=== PATIENT | male | born 1940 | race African-American/Black ===

== ENCOUNTER 2018-04-07 03:33 | Inpatient (IN) | payer MEDICARE, MEDICAID ==
[~2018-04-07] VITALS: Ht 167.6 cm; Wt 107.1 kg
[~2018-04-07 03:33] MED LIST: ALPR1TAB7 PO; BACL10TA PO; DULO60CA PO; ESCI20TA PO; FURO40TA4 PO; GABA400C11 PO; GLIM2TAB33 PO; INSLANTI; OXYB10TA13 PO; OXYC-650 PO; ROSU1TAB5 PO; TRAZ100T2 PO; [UNRECOGNIZED DRUG - CODE] PO
[2018-04-07 04:01] LABS: Basophils # (auto) 0.1 uL; Basophils % (auto) 1.6 % (0.0-2.0); Eosinophils # (auto) 0.2 uL; Hematocrit 42.8 % (41.0-53.0); Hemoglobin 14.2 g/dL (13.5-17.5); Lymphocytes # (auto) 1.9 uL; Lymphocytes % (auto) 41.1 % (10.0-50.0); Mean Corpuscular Hemoglobin 28.7 pg (28.0-32.0); Mean Corpuscular Hgb Conc. 33.2 g/dL (32.0-36.0); Mean Corpuscular Volume 86.5 fL (80.0-100.0); Monocytes # (auto) 0.4 uL; Monocytes % (auto) 8.6 % (0.0-12.0); Neutrophils # (auto) 2.1 uL; Neutrophils % (auto) 44.7 % (37.0-80.0); Nucleated Red Blood Cells % 0.1 %; Platelet Count (auto) 192 10^3/uL (140-450); Red Blood Cells 4.94 10^6/uL (4.5-5.90); Red Cell Distribution Width 15.3 % (11.8-14.3); White Blood Cell 4.7 10^3/uL (4.4-10.8)
[2018-04-07 04:24] LABS: INR 0.97 (0.9-1.15); Partial Thromboplastin Time 26.1 sec (23.78-33.04); Prothrombin Time 10.4 sec (9.27-12.13)
[2018-04-07 04:29] LABS: Alanine Aminotransferase 18 U/L (16-61); Albumin 2.8 g/dL (3.4-5.0); Alkaline Phosphatase 92 U/L (45-117); Anion Gap 8 (5-15); Aspartate Aminotransferase 12 U/L (15-37); BUN/Creatinine Ratio 16.8; Bilirubin, Total 0.4 mg/dL (0.2-1.0); Blood Urea Nitrogen 16 mg/dL (7-18); Carbon Dioxide 24 mmol/L (21-32); Chloride 108 mmol/L (98-107); GFR African American 99 mL/min; GFR Non-African American 82 mL/min; Glucose 108 mg/dL (74-106); Magnesium 2.3 mg/dL (1.6-2.6); Potassium 3.6 mmol/L (3.5-5.1); Sodium 140 mmol/L (136-145); Total Protein 6.4 g/dL (6.4-8.2)
[2018-04-07 07:19] LABS: Urine Bacteria NONE SEEN /hpf (None Seen); Urine Blood Negative /uL (Negative); Urine Mucus FEW (None Seen); Urine WBC 4 /hpf (0 - 3)
[2018-04-07] MEDS ORDERED: ENOXAPARIN SOD 100 MG/1 ML SYRINGE SC ONE (07:45)
[2018-04-07] MEDS ORDERED: IOHEXOL 350 MG/ML 100ML IJ ONE (07:54)
[2018-04-07] MEDS ORDERED: DEXTROSE (50%) 50ML SYRG IV PRN (09:00)
[2018-04-07] MEDS ORDERED: INSULIN LANTUS (GLARGINE) 1 /0.01ml (100units/ml) SC ONE (09:00)
[2018-04-07] MEDS ORDERED: LORazepam 0.5 MG TAB PO PRN (09:15)
[2018-04-07] MEDS ORDERED: MORPHINE SULFATE 8mg/ml INJ SDV IV PRN ×2 (09:15)
[2018-04-07] MEDS ORDERED: ONDANSETRON HCL 4 MG/2 ML VIAL IV PRN ×2 (09:15→10:45)
[2018-04-07] MEDS ORDERED: ACETAMINOPHEN 325 MG TAB PO PRN (09:15)
[2018-04-07] MEDS ORDERED: ZOLPIDEM TARTRATE 5 MG TAB PO PRN (09:15)
[2018-04-07] MEDS ORDERED: GLIMEPIRIDE 2 MG TAB PO ONE (09:15)
[2018-04-07] MEDS ORDERED: FUROSEMIDE 40 MG/4 ML VIAL IV ONE (09:15)
[2018-04-07] MEDS ORDERED: NITROGLYCERIN 0.4 MG SL TAB SL PRN ×2 (09:15)
[2018-04-07] MEDS ORDERED: ALUM & MAG HYDROX-SIMETH LIQ(MAALOX) 30 ML PO ONE (09:15)
[2018-04-07] MEDS: VALSARTAN 80 MG TAB PO SCH (09:55)
[2018-04-07] MEDS: ASPirin 81 mg TAB PO SCH (09:56)
[2018-04-07] MEDS: HCTZ 25 MG TAB PO SCH (09:56)
[2018-04-07] MEDS: DULoxetine HCL 30 MG CAP PO SCH ×2 (09:56→21:32)
[2018-04-07] MEDS: POTASSIUM CHL 10 Meq TABLET PO SCH ×2 (09:56→21:35)
[2018-04-07] MEDS: DOCUSATE SOD 100 MG CAP PO SCH (09:56)
[2018-04-07] MEDS: CLOPIDOGREL BISULFATE 75 MG TAB PO SCH (09:57)
[2018-04-07] MEDS: GABAPENTIN 400 MG CAP PO SCH ×2 (09:57→21:34)
[2018-04-07] MEDS: CARVEDILOL 3.125 MG TAB PO SCH ×2 (09:58→21:36)
[2018-04-07] MEDS: LEXAPRO 20 MG PO SCH (10:00)
[2018-04-07] MEDS: OXYBUTYNIN CHL 5 MG TAB PO SCH ×2 (10:15→21:31)
[2018-04-07] MEDS: oxyCODONE ER 10 MG TAB PO SCH ×2 (10:15→21:34)
[2018-04-07] MEDS ORDERED: traMADol HCL 50 MG TAB PO PRN (10:45)
[2018-04-07] MEDS ORDERED: LORazepam 2MG/ML-1ML VIAL IV ONE (10:45)
[2018-04-07] MEDS: InsuLIN REG 1unit/0.01ml Soln (100units/ml) SC SCH ×3 (11:30→21:39)
[2018-04-07 12:00] VITALS: BP 132/73
[2018-04-07] MEDS: ACCU-CHEK COMFORT CURVE STRIP VI SCH ×3 (13:09→21:36)
[2018-04-07 13:10] VITALS: BP 134/73
[2018-04-07] MEDS: SODIUM CHLOR 0.9% PF (SALINE LOCK) 10ML VIAL/SYR IV SCH ×2 (14:33→21:36)
[2018-04-07 14:34] VITALS: BP 134/73
[2018-04-07 16:55] VITALS: BP 106/65
[2018-04-07] MEDS: FUROSEMIDE 40 MG/4 ML VIAL IV SCH (17:55)
[2018-04-07] MEDS: ALBUTEROL SULF 2.5 MG/0.5ML(0.5%) NEB SOLN NEB SCH (19:29)
[2018-04-07] MEDS: IPRATROPIUM BROM 0.5 MG/2.5ML INH SOL NEB SCH (19:29)
[2018-04-07] MEDS: traZODone HCL 50 MG TAB PO SCH (21:32)
[2018-04-07] MEDS: ATORVASTATIN 20 MG TAB PO SCH (21:34)
[2018-04-07] MEDS: INSULIN LANTUS (GLARGINE) 1 /0.01ml (100units/ml) SC SCH (21:39)
[2018-04-07] MEDS ORDERED: NAPROXEN 500 MG TAB PO SCH (22:00)
[2018-04-07 22:30] VITALS: BP 123/63
[2018-04-08 05:36] VITALS: BP 109/62
[2018-04-08] MEDS: SODIUM CHLOR 0.9% PF (SALINE LOCK) 10ML VIAL/SYR IV SCH ×3 (06:14→21:45)
[2018-04-08] MEDS: FUROSEMIDE 40 MG/4 ML VIAL IV SCH ×2 (06:14→18:00)
[2018-04-08] MEDS: GLIMEPIRIDE 2 MG TAB PO SCH (06:19)
[2018-04-08] MEDS: InsuLIN REG 1unit/0.01ml Soln (100units/ml) SC SCH ×4 (06:19→21:45)
[2018-04-08] MEDS: INSULIN LANTUS (GLARGINE) 1 /0.01ml (100units/ml) SC SCH ×2 (06:19→22:00)
[2018-04-08] MEDS: ACCU-CHEK COMFORT CURVE STRIP VI SCH ×4 (06:19→22:00)
[2018-04-08 06:30] LABS: Basophils # (auto) 0 uL; Basophils % (auto) 0.4 % (0.0-2.0); Eosinophils # (auto) 0.1 uL; Eosinophils % (auto) 2.3 % (0.0-7.0); Hematocrit 40.5 % (41.0-53.0); Hemoglobin 13.6 g/dL (13.5-17.5); Lymphocytes # (auto) 1.4 uL; Lymphocytes % (auto) 29.2 % (10.0-50.0); Mean Corpuscular Hemoglobin 29.3 pg (28.0-32.0); Mean Corpuscular Hgb Conc. 33.7 g/dL (32.0-36.0); Monocytes # (auto) 0.4 uL; Monocytes % (auto) 8.8 % (0.0-12.0); Neutrophils # (auto) 2.9 uL; Neutrophils % (auto) 59.3 % (37.0-80.0); Platelet Count (auto) 183 10^3/uL (140-450); Red Blood Cells 4.65 10^6/uL (4.5-5.90); Red Cell Distribution Width 15.3 % (11.8-14.3); White Blood Cell 4.9 10^3/uL (4.4-10.8)
[2018-04-08 06:48] LABS: Albumin 2.8 g/dL (3.4-5.0); BUN/Creatinine Ratio 12.8; Bilirubin, Total 0.3 mg/dL (0.2-1.0); Calcium 8.5 mg/dL (8.5-10.1); Magnesium 2.2 mg/dL (1.6-2.6); Potassium 4.1 mmol/L (3.5-5.1); Total Protein 6.1 g/dL (6.4-8.2)
[2018-04-08] MEDS: ALBUTEROL SULF 2.5 MG/0.5ML(0.5%) NEB SOLN NEB SCH ×4 (07:01→18:53)
[2018-04-08] MEDS: IPRATROPIUM BROM 0.5 MG/2.5ML INH SOL NEB SCH ×4 (07:01→18:53)
[2018-04-08 08:50] VITALS: BP 67/40
[2018-04-08 09:00] VITALS: BP 98/58
[2018-04-08] MEDS ORDERED: SODIUM CHLORIDE 0.9% 1,000 ML IV ONE (09:00)
[2018-04-08] MEDS: OXYBUTYNIN CHL 5 MG TAB PO SCH ×2 (09:43→22:13)
[2018-04-08] MEDS: ASPirin 81 mg TAB PO SCH (09:43)
[2018-04-08] MEDS: DULoxetine HCL 30 MG CAP PO SCH ×2 (09:43→22:28)
[2018-04-08] MEDS: GABAPENTIN 400 MG CAP PO SCH ×2 (09:44→22:14)
[2018-04-08] MEDS: DOCUSATE SOD 100 MG CAP PO SCH (09:44)
[2018-04-08] MEDS: POTASSIUM CHL 10 Meq TABLET PO SCH ×2 (09:44→22:28)
[2018-04-08] MEDS: CLOPIDOGREL BISULFATE 75 MG TAB PO SCH (09:44)
[2018-04-08] MEDS: CARVEDILOL 3.125 MG TAB PO SCH ×2 (09:45→22:11)
[2018-04-08] MEDS: VALSARTAN 80 MG TAB PO SCH (09:45)
[2018-04-08] MEDS: oxyCODONE ER 10 MG TAB PO SCH ×2 (09:45→22:00)
[2018-04-08] MEDS: LEXAPRO 20 MG PO SCH (09:45)
[2018-04-08] MEDS: HCTZ 25 MG TAB PO SCH (09:46)
[2018-04-08 13:00] VITALS: BP 109/56
[2018-04-08 17:00] VITALS: BP 107/69
[2018-04-08 22:00] VITALS: BP 112/64
[2018-04-08] MEDS: BACLOFEN 10 MG TAB PO PRN (22:12)
[2018-04-08] MEDS: ATORVASTATIN 20 MG TAB PO SCH (22:13)
[2018-04-08] MEDS: traZODone HCL 50 MG TAB PO SCH (22:28)
[2018-04-09] VITALS (9 sets, daily range): BP systolic 77–133; BP diastolic 47–95
[2018-04-09] MEDS: ALBUTEROL SULF 2.5 MG/0.5ML(0.5%) NEB SOLN NEB SCH ×4 (00:30→18:38)
[2018-04-09] MEDS: IPRATROPIUM BROM 0.5 MG/2.5ML INH SOL NEB SCH ×4 (00:30→18:38)
[2018-04-09] MEDS: SODIUM CHLOR 0.9% PF (SALINE LOCK) 10ML VIAL/SYR IV SCH ×3 (05:41→22:13)
[2018-04-09] MEDS: ACCU-CHEK COMFORT CURVE STRIP VI SCH ×4 (05:41→22:12)
[2018-04-09] MEDS: FUROSEMIDE 40 MG/4 ML VIAL IV SCH (05:41)
[2018-04-09] MEDS: INSULIN LANTUS (GLARGINE) 1 /0.01ml (100units/ml) SC SCH ×2 (05:52→22:00)
[2018-04-09] MEDS: InsuLIN REG 1unit/0.01ml Soln (100units/ml) SC SCH ×4 (05:52→20:02)
[2018-04-09] MEDS: GLIMEPIRIDE 2 MG TAB PO SCH ×2 (05:53→07:00)
[2018-04-09] MEDS: HCTZ 25 MG TAB PO SCH (10:00)
[2018-04-09] MEDS: VALSARTAN 80 MG TAB PO SCH (10:00)
[2018-04-09] MEDS: LEXAPRO 20 MG PO SCH (10:00)
[2018-04-09] MEDS: CARVEDILOL 3.125 MG TAB PO SCH (10:00)
[2018-04-09] MEDS: oxyCODONE ER 10 MG TAB PO SCH ×2 (10:07→22:00)
[2018-04-09] MEDS: ASPirin 81 mg TAB PO SCH (10:07)
[2018-04-09] MEDS: POTASSIUM CHL 10 Meq TABLET PO SCH ×2 (10:07→22:11)
[2018-04-09] MEDS: DOCUSATE SOD 100 MG CAP PO SCH (10:07)
[2018-04-09] MEDS: OXYBUTYNIN CHL 5 MG TAB PO SCH ×2 (10:07→22:10)
[2018-04-09] MEDS: CLOPIDOGREL BISULFATE 75 MG TAB PO SCH (10:07)
[2018-04-09] MEDS: GABAPENTIN 400 MG CAP PO SCH ×2 (10:07→22:11)
[2018-04-09] MEDS: DULoxetine HCL 30 MG CAP PO SCH ×2 (10:07→22:11)
[2018-04-09] MEDS: SODIUM CHLORIDE 0.9% 1,000 ML IV SCH (17:53)
[2018-04-09] MEDS: BACLOFEN 10 MG TAB PO PRN (22:10)
[2018-04-09] MEDS: traZODone HCL 50 MG TAB PO SCH (22:10)
[2018-04-09] MEDS: ATORVASTATIN 20 MG TAB PO SCH (22:13)
[2018-04-10] MEDS: ALBUTEROL SULF 2.5 MG/0.5ML(0.5%) NEB SOLN NEB SCH ×4 (00:42→18:34)
[2018-04-10] MEDS: IPRATROPIUM BROM 0.5 MG/2.5ML INH SOL NEB SCH ×4 (00:42→18:34)
[2018-04-10 05:00] VITALS: BP 117/72
[2018-04-10] MEDS: InsuLIN REG 1unit/0.01ml Soln (100units/ml) SC SCH ×4 (05:45→22:00)
[2018-04-10] MEDS: SODIUM CHLOR 0.9% PF (SALINE LOCK) 10ML VIAL/SYR IV SCH ×3 (05:45→22:01)
[2018-04-10] MEDS: ACCU-CHEK COMFORT CURVE STRIP VI SCH ×4 (05:46→22:02)
[2018-04-10] MEDS: INSULIN LANTUS (GLARGINE) 1 /0.01ml (100units/ml) SC SCH ×2 (05:47→22:02)
[2018-04-10] MEDS: SODIUM CHLORIDE 0.9% 1,000 ML IV SCH ×2 (08:51→19:55)
[2018-04-10 08:54] VITALS: BP 142/77
[2018-04-10] MEDS: DOCUSATE SOD 100 MG CAP PO SCH (09:02)
[2018-04-10] MEDS: CLOPIDOGREL BISULFATE 75 MG TAB PO SCH (09:02)
[2018-04-10] MEDS: oxyCODONE ER 10 MG TAB PO SCH ×2 (09:02→22:02)
[2018-04-10] MEDS: DULoxetine HCL 30 MG CAP PO SCH ×2 (09:03→22:01)
[2018-04-10] MEDS: POTASSIUM CHL 10 Meq TABLET PO SCH ×2 (09:03→22:02)
[2018-04-10] MEDS: ASPirin 81 mg TAB PO SCH (09:03)
[2018-04-10] MEDS: GABAPENTIN 400 MG CAP PO SCH ×2 (09:03→22:02)
[2018-04-10] MEDS: OXYBUTYNIN CHL 5 MG TAB PO SCH ×2 (09:03→22:01)
[2018-04-10] MEDS: LEXAPRO 20 MG PO SCH (10:00)
[2018-04-10 12:39] VITALS: BP 143/69
[2018-04-10 15:28] VITALS: BP 143/69
[2018-04-10 17:00] VITALS: BP 155/82
[2018-04-10 22:00] VITALS: BP 140/79
[2018-04-10] MEDS: traZODone HCL 50 MG TAB PO SCH (22:01)
[2018-04-10] MEDS: ATORVASTATIN 20 MG TAB PO SCH (22:02)
[2018-04-11] MEDS: IPRATROPIUM BROM 0.5 MG/2.5ML INH SOL NEB SCH ×5 (00:37→23:41)
[2018-04-11] MEDS: ALBUTEROL SULF 2.5 MG/0.5ML(0.5%) NEB SOLN NEB SCH ×5 (00:37→23:41)
[2018-04-11 05:00] VITALS: BP 147/80
[2018-04-11] MEDS: InsuLIN REG 1unit/0.01ml Soln (100units/ml) SC SCH ×4 (06:20→21:48)
[2018-04-11] MEDS: SODIUM CHLOR 0.9% PF (SALINE LOCK) 10ML VIAL/SYR IV SCH ×3 (06:20→21:28)
[2018-04-11] MEDS: GLIMEPIRIDE 2 MG TAB PO SCH (06:20)
[2018-04-11] MEDS: INSULIN LANTUS (GLARGINE) 1 /0.01ml (100units/ml) SC SCH ×2 (06:21→21:48)
[2018-04-11] MEDS: ACCU-CHEK COMFORT CURVE STRIP VI SCH ×4 (06:21→21:30)
[2018-04-11 08:00] VITALS: BP 145/83
[2018-04-11 09:00] VITALS: BP 145/83
[2018-04-11] MEDS: LEXAPRO 20 MG PO SCH (10:00)
[2018-04-11] MEDS: ASPirin 81 mg TAB PO SCH (10:54)
[2018-04-11] MEDS: CLOPIDOGREL BISULFATE 75 MG TAB PO SCH (10:54)
[2018-04-11] MEDS: oxyCODONE ER 10 MG TAB PO SCH ×2 (10:55→21:30)
[2018-04-11] MEDS: POTASSIUM CHL 10 Meq TABLET PO SCH ×2 (10:55→21:30)
[2018-04-11] MEDS: DOCUSATE SOD 100 MG CAP PO SCH (10:55)
[2018-04-11] MEDS: GABAPENTIN 400 MG CAP PO SCH ×2 (10:56→21:30)
[2018-04-11] MEDS: DULoxetine HCL 30 MG CAP PO SCH ×2 (10:56→21:29)
[2018-04-11] MEDS: OXYBUTYNIN CHL 5 MG TAB PO SCH ×2 (10:56→21:29)
[2018-04-11] MEDS: SODIUM CHLORIDE 0.9% 1,000 ML IV SCH ×2 (10:57→21:48)
[2018-04-11 13:00] VITALS: BP 124/87
[2018-04-11 16:54] VITALS: BP 149/92
[2018-04-11] MEDS: traZODone HCL 50 MG TAB PO SCH (21:29)
[2018-04-11] MEDS: ATORVASTATIN 20 MG TAB PO SCH (21:30)
[2018-04-11 22:00] VITALS: BP 158/73
[2018-04-12 05:34] VITALS: BP 148/73
[2018-04-12] MEDS: InsuLIN REG 1unit/0.01ml Soln (100units/ml) SC SCH ×3 (06:23→17:00)
[2018-04-12] MEDS: ACCU-CHEK COMFORT CURVE STRIP VI SCH ×3 (06:24→17:16)
[2018-04-12] MEDS: INSULIN LANTUS (GLARGINE) 1 /0.01ml (100units/ml) SC SCH (06:24)
[2018-04-12] MEDS: GLIMEPIRIDE 2 MG TAB PO SCH (06:24)
[2018-04-12] MEDS: SODIUM CHLOR 0.9% PF (SALINE LOCK) 10ML VIAL/SYR IV SCH ×2 (06:25→14:14)
[2018-04-12] MEDS: ALBUTEROL SULF 2.5 MG/0.5ML(0.5%) NEB SOLN NEB SCH ×3 (07:00→19:23)
[2018-04-12] MEDS: IPRATROPIUM BROM 0.5 MG/2.5ML INH SOL NEB SCH ×3 (07:00→19:23)
[2018-04-12] MEDS: DULoxetine HCL 30 MG CAP PO SCH (09:24)
[2018-04-12] MEDS: ASPirin 81 mg TAB PO SCH (09:25)
[2018-04-12] MEDS: POTASSIUM CHL 10 Meq TABLET PO SCH (09:25)
[2018-04-12] MEDS: CLOPIDOGREL BISULFATE 75 MG TAB PO SCH (09:25)
[2018-04-12] MEDS: GABAPENTIN 400 MG CAP PO SCH (09:25)
[2018-04-12] MEDS: OXYBUTYNIN CHL 5 MG TAB PO SCH (09:25)
[2018-04-12] MEDS: DOCUSATE SOD 100 MG CAP PO SCH (09:25)
[2018-04-12] MEDS: oxyCODONE ER 10 MG TAB PO SCH (09:26)
[2018-04-12] MEDS: LEXAPRO 20 MG PO SCH (09:26)
[2018-04-12 09:34] VITALS: BP 122/68
[2018-04-12] MEDS: SODIUM CHLORIDE 0.9% 1,000 ML IV SCH (12:29)
[2018-04-12 12:36] VITALS: BP 137/98
[2018-04-12 16:27] VITALS: BP 122/68
[2018-04-12 16:52] VITALS: BP 114/65
[2018-04-12 17:27] VITALS: BP 131/83
== END 2018-04-12 21:30 | disposition home or self-care (01) | DRG 291 ==
LOC: EDBD 03:33 → ER 03:38 → TELE 03:39 → TELE-WESTW 11:45
PROVIDERS: ADMIT Internal Medicine; ATTEND Specialist
DX: I11.0 Hypertensive heart disease with heart failure (principal); N17.0 Acute kidney failure with tubular necrosis; E44.0 Moderate protein-calorie malnutrition; I50.43 Acute on chronic combined systolic (congestive) and diastolic (congestive) heart failure; E83.51 Hypocalcemia; I25.10 Atherosclerotic heart disease of native coronary artery without angina pectoris; E11.40 Type 2 diabetes mellitus with diabetic neuropathy, unspecified; E11.65 Type 2 diabetes mellitus with hyperglycemia; E66.01 Morbid (severe) obesity due to excess calories; G89.29 Other chronic pain; J44.9 Chronic obstructive pulmonary disease, unspecified; Z85.46 Personal history of malignant neoplasm of prostate; Z79.4 Long term (current) use of insulin; Z79.899 Other long term (current) drug therapy; Z83.3 Family history of diabetes mellitus; Z82.49 Family history of ischemic heart disease and other diseases of the circulatory system; Z91.14 Patient's other noncompliance with medication regimen; Z68.38 Body mass index [BMI] 38.0-38.9, adult
CPT/HCPCS: 36415; 71045; 71275; 80053; 80061; 81001; 82962; 83036; 83735; 83880; 84443; 84484; 85025; 85379; 85610; 85730; 87081; 93005; 93306; 93970; 94640; 96372; 96374; J1815; J2405

== ENCOUNTER 2023-12-19 16:24 | Emergency (ER) | payer OTHER, MEDICAID ==
[~2023-12-19] VITALS: Ht 167.6 cm; Wt 104.5 kg
[~2023-12-19 16:24] MED LIST changes: -DULO60CA PO; +DULO60CA41 PO; +GABA-1251 PO; -GABA400C11 PO; -OXYB10TA13 PO; +OXYB10TA14 PO; +ROSU10TA64 PO; -ROSU1TAB5 PO; +TRAZ-228 PO; -TRAZ100T2 PO; +VALS160T82 PO; -[UNRECOGNIZED DRUG - CODE] PO
[2023-12-19 21:20] LABS: Urine Bacteria NONE SEEN /hpf (None Seen); Urine Blood Negative /uL (Negative); Urine Clarity Clear (Clear); Urine Color Colorless (Yellow); Urine Protein, UAD Negative (Negative); Urine Specific Gravity 1.027 (1.001-1.035); Urine Urobilinogen Normal (Negative); Urine WBC <1 /hpf (0 - 3); Urine pH 5.5 (5.0-8.0)
[2023-12-19 21:53] LABS: Basophils # (auto) 0 10 ^3/uL (0-0.2); Basophils % (auto) 0.7 % (0.0-2.0); Eosinophils # (auto) 0.2 10 ^3/uL (0-0.8); Hematocrit 44.1 % (41.0-53.0); Hemoglobin 14.4 g/dL (13.5-17.5); Lymphocytes # (auto) 1.5 10 ^3/uL (0.4-5.4); Lymphocytes % (auto) 33.4 % (10.0-50.0); Mean Corpuscular Hemoglobin 28.8 pg (28.0-32.0); Mean Corpuscular Hgb Conc. 32.7 g/dL (32.0-36.0); Mean Corpuscular Volume 88.1 fL (80.0-100.0); Monocytes # (auto) 0.6 10 ^3/uL (0-1.3); Monocytes % (auto) 14.9 % (0.0-12.0); Nucleated Red Blood Cells % 0.1 %; Red Blood Cells 5.01 10^6/uL (4.5-5.90); Red Cell Distribution Width 15.9 % (11.8-14.3); White Blood Cell 4.3 10^3/uL (4.4-10.8)
[2023-12-19 22:03] LABS: Chloride 107 mmol/L (98-107); Potassium 4.3 mmol/L (3.5-5.1); Sodium 139 mmol/L (136-145)
[2023-12-19 22:04] LABS: Anion Gap 3 (5-15); Calcium 8.4 mg/dL (8.7-10.4); Carbon Dioxide 29 mmol/L (20-30)
[2023-12-19 22:09] LABS: BUN/Creatinine Ratio 8.3 (10.0-20.0); Blood Urea Nitrogen 10 mg/dL (9-23); Glucose 154 mg/dL (74-106)
[2023-12-20 07:04] VITALS: BP 139/71; PULSE 62; RESP 17; TEMP 98; O2SAT 97
== END 2023-12-20 07:20 | disposition home or self-care (01) ==
LOC: ER 16:24
DX: R53.1 Weakness (principal); R22.43 Localized swelling, mass and lump, lower limb, bilateral; R10.13 Epigastric pain; R07.89 Other chest pain; I11.0 Hypertensive heart disease with heart failure; I50.9 Heart failure, unspecified; I25.10 Atherosclerotic heart disease of native coronary artery without angina pectoris; E11.9 Type 2 diabetes mellitus without complications; J44.9 Chronic obstructive pulmonary disease, unspecified; Z95.0 Presence of cardiac pacemaker; Z79.4 Long term (current) use of insulin; Z79.899 Other long term (current) drug therapy
CPT/HCPCS: 36415; 71045; 80048; 81001; 83880; 84484; 85025; 93005